=== PATIENT | male | born 1995 | race African-American/Black ===

== ENCOUNTER 2021-02-10 12:16 | Emergency (ER) | payer OTHER ==
[~2021-02-10] VITALS: Ht 170.2 cm; Wt 80.0 kg
[2021-02-10 12:23] VITALS: BP 128/58
--- NOTE | 2021-02-10 13:16 | RAD ---
Exam Date: 02/10/2021 12:41 PM XR CHEST 1V Indication: Reason: shortness of breath / Spl. Instructions: / History: . FINDINGS/ IMPRESSION: The cardiac silhouette and pulmonary vasculature are within normal limits. There is no focal consolidation, pleural effusion or pneumothorax. The visualized osseous structures are intact. Electronically signed by: Benedicto Limon MD (02/10/2021 1:14 PM) [facility]
--- NOTE | 2021-02-10 13:16 | RAD ---
Exam Date: 02/10/2021 12:41 PM XR LUMBAR SPINE 4+V Indication: Reason: shortness of breath / Spl. Instructions: / History: . Back pain FINDINGS/ IMPRESSION: Anatomic alignment is maintained without spondylolisthesis. The vertebral body heights are maintaine d without evidence of compression fracture. Disc spaces are maintained. The SI joints appear normal. The visualized soft tissues are within normal limits. Electronically signed by: Benedicto Limon MD (02/10/2021 1:13 PM) [facility]
[2021-02-10] MEDS ORDERED: ALBU2.5V8 INH (13:29)
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
== END 2021-02-10 13:51 | disposition home or self-care (01) ==
LOC: ER 12:16
DX: J45.909 Unspecified asthma, uncomplicated (principal); R51.9 Headache, unspecified; R25.1 Tremor, unspecified; M54.5 Low back pain; F31.9 Bipolar disorder, unspecified; Z88.6 Allergy status to analgesic agent; Z91.018 Allergy to other foods
CPT/HCPCS: 71045; 72110; 99284